=== PATIENT | female | born 1985 | race African-American/Black ===

== ENCOUNTER 2023-08-12 11:30 | Emergency (ER) | payer OTHER ==
[2023-08-12 11:49] VITALS: BP 113/82; PULSE 119; RESP 18; TEMP 98.4; BMI 33.3
[2023-08-12] MEDS ORDERED: LORATADINE 10 MG TABLET ONE (12:20)
[2023-08-12] MEDS: LORATADINE 10 MG TABLET PO ONE (12:22)
== END 2023-08-12 12:49 | disposition home or self-care (01) ==
LOC: JERFT 11:30
DX: R21 Rash and other nonspecific skin eruption (principal); F10.920 Alcohol use, unspecified with intoxication, uncomplicated; F19.90 Other psychoactive substance use, unspecified, uncomplicated; L30.9 Dermatitis, unspecified
CPT/HCPCS: 99283-25